=== PATIENT | male | born 1985 | race Caucasian/White ===

== ENCOUNTER → 2019-07-04 12:19 | Outpatient (CLI) | payer OTHER, SELFPAY ==
--- NOTE | ~2019-07-04 | CT_ITS ---
EXAMINATION: CT abdomen pelvis w con EXAM DATE: 07/04/2019 12:46 INDICATION: Low abdominal pain. History appendectomy. TECHNIQUE: Spiral CT of the abdomen and pelvis was performed following intravenous injection of 100 m L Omnipaque 350. Axial, coronal and sagittal images were reviewed. The dose-length product (DLP) fo r this examination was 1025.81 mGy-cm. The exposure was tailored according to patient size (auto mA exposure control), and iterative reconstruction (ASIR) was used as additional dose reduction techniqu e. Comparison is made to prior examination from 07/13/2016. FINDINGS: There is hepatic steatosis without suspicious focal lesion identified. Spleen, adrenal glan ds, pancreas are unremarkable. Gallbladder is unremarkable. No biliary obstruction. Portal and spl enic veins are patent. Kidneys enhance symmetrically. There is no hydronephrosis. The prostate is unremarkable. The bladder is unremarkable. There is no retroperitoneal or pelvic lymphadenopathy. Small right inguinal fat-containing hernia. Interval appendectomy. The stomach and small bowel are unremarkable. There is expected amount of c olonic stool. No free intraperitoneal gas. The heart is normal in size. There are no pericardial or pleural effusions. The lung bases are unremarkable. The bones are unremarkable. IMPRESSION: 1. No acute intra-abdominal findings. 2. Hepatic steatosis. Reviewed, dictated and finalized at location B.
== END ==
PROVIDERS: PCP Physician Assistant Medical; Visit Provider Physician Assistant Medical
DX: R10.30 Lower abdominal pain, unspecified (principal); K76.0 Fatty (change of) liver, not elsewhere classified
CPT/HCPCS: 74177; Q9967

== ENCOUNTER → 2019-11-18 12:39 | Outpatient (CLI) | payer OTHER, SELFPAY ==
--- NOTE | ~2019-11-18 | US_ITS ---
EXAMINATION: US right upper quadrant DATE: 11/18/2019 13:04 INDICATION: Right upper quadrant abdominal pain. Nausea. TECHNIQUE: Multiple grayscale and Doppler ultrasound images of the abdomen were obtained. COMPARISON: CT abdomen and pelvis 07/04/2019 FINDINGS: The visualized portions of the head, body, and tail of the pancreas are normal. There is di ffuse hepatic steatosis. There is normal flow in main portal vein. The gallbladder is normal in size. No gallstones or gallbladder wall thickening. There was no sonographic Flores sign. The common duct is normal and measures 4 mm. IMPRESSION: 1. Diffuse hepatic steatosis. Reviewed, dictated and finalized at location A.
== END ==
PROVIDERS: PCP Family Medicine; Visit Provider Family Medicine
DX: R10.11 Right upper quadrant pain (principal); R11.0 Nausea; K76.0 Fatty (change of) liver, not elsewhere classified
CPT/HCPCS: 76705

== ENCOUNTER → 2020-05-18 14:25 | Outpatient (CLI) | payer OTHER, SELFPAY ==
--- NOTE | ~2020-05-18 | XR_ITS ---
EXAMINATION: XR chest 2V DATE: 05/18/2020 15:04 INDICATION: Smoker. Anterior chest pain. TECHNIQUE: Frontal and lateral views of the chest were obtained. COMPARISON: CT abdomen 05/18/2020 FINDINGS: The chest demonstrates clear lungs without pneumonia, pleural effusion, or pneumothorax. Th e heart size is normal. IMPRESSION: 1. No acute cardiopulmonary disease. Reviewed, dictated and finalized at location A. E WORKER
--- NOTE | ~2020-05-18 | CT_ITS ---
EXAMINATION: CT abdomen w con DATE: 05/18/2020 14:52 INDICATION: Chronic pancreatitis. TECHNIQUE: Computed tomographic angiography (CTA) of the abdomen was performed with 100 mL Omnipaque 350with 100 mL Omnipaque-350 intravenous contrast. Automated exposure control and iterative reconstru ction technique were employed. The dose-length product was 673.16 mGy-cm. Maximum intensity projectio n 3D-reconstructions of the aorta and other arteries were constructed by the technologist on a [employer] workstation. COMPARISON: CT abdomen and pelvis 07/04/2019 FINDINGS: The visualized portions of the lung bases demonstrate mild dependent atelectasis. No pleura l effusion. The heart size is normal. No pericardial effusion. There is diffuse hepatic steatosis. Th e gallbladder, spleen, pancreas, adrenal glands, and kidneys are normal. The splenic artery and vein are normal. There are no dilated loops of bowel. There are no pathologically enlarged lymph nodes. Th ere is no free intraperitoneal fluid. Bones are unremarkable. IMPRESSION: 1. Diffuse hepatic steatosis. Reviewed, dictated and finalized at location A. REVENUE CYCLE
== END ==
DX: K86.1 Other chronic pancreatitis (principal); E78.1 Pure hyperglyceridemia; F17.210 Nicotine dependence, cigarettes, uncomplicated; K76.0 Fatty (change of) liver, not elsewhere classified
CPT/HCPCS: 71046; 74160; Q9967

== ENCOUNTER 2020-06-01 11:31 | Outpatient (CLI) | payer OTHER, SELFPAY ==
[2020-06-01 12:21] LABS: Bilirubin,Total 0.4 mg/dL (0.2-1.3)
[2020-06-01 12:22] LABS: INR 0.9; Prothrombin Time 13.2 Seconds (11.1-14.7)
[2020-06-01 12:41] LABS: Iron 74 ug/dL (49-181)
[2020-06-01 12:50] LABS: Percent Iron Saturation 18 % (20-50)
[2020-06-04 15:29] LABS: Ceruloplasmin 31 mg/dL (18-36)
[2020-06-05 13:59] LABS: GGT 36 U/L (3-90)
== END 2020-06-01 11:32 | disposition home or self-care (01) ==
DX: E78.1 Pure hyperglyceridemia (principal); K76.0 Fatty (change of) liver, not elsewhere classified
CPT/HCPCS: 36415; 82247; 82248; 82390; 82728; 82977; 83540; 83550; 85610

== ENCOUNTER 2020-08-16 07:30 | Outpatient (CLI) | payer OTHER, SELFPAY ==
[2020-08-16 08:14] LABS: Basophils Percent Auto 0.4 % (0.2-1.2); Eosinophils Absolute Auto 0.3 K/mm3 (0-0.3); Eosinophils Percent Auto 2.4 % (0-4.4); Hematocrit 42.9 % (42.0-52.0); Hemoglobin 14.1 g/dL (14.0-18.0); Immature Granulocyte Absolute 0.03 K/mm3 (0.00-0.031); Immature Granulocyte Percent A 0.3 % (0-0.5); Lymphocytes Absolute Auto 3.38 K/mm3 (0.9-3.2); Mean Corpuscular HGB Conc 32.9 g/dl (32-36); Mean Corpuscular Hemoglobin 28.5 pg (26-34); Mean Corpuscular Volume 86.7 fl (80-100); Mean Platelet Volume 9.5 fl (7.4-10.4); Monocytes Absolute Auto 0.7 K/mm3 (0.1-0.6); Monocytes Percent Auto 6.7 % (2.6-8.5); Neutrophils Absolute Auto 5.8 K/mm3 (1.3-6.7); Neutrophils Percent Auto 57.2 % (45.5-73.1); Platelet Count Result 286 k/mm3 (150-375); Red Blood Count 4.95 M/mm3 (4.6-6.20); Red Cell Distribution Width 12.7 % (11.5-14.5); White Blood Count 10.2 K/mm3 (4.5-10.0)
[2020-08-16 08:30] LABS: Alanine Aminotransferase 29 U/L (4-50); Albumin Level 4.4 g/dL (3.5-5.1); Alkaline Phosphatase 66 U/L (38-126); Anion Gap 8 mmol/L (8-16); Aspartate Amino Transferase 23 U/L (17-59); Bilirubin,Total < 0.1 mg/dL (0.2-1.3); Blood Urea Nitrogen 16 mg/dL (9-20); Calcium 9.2 mg/dL (8.4-10.2); Carbon Dioxide 23 mmol/L (22-30); Chloride 110 mmol/L (98-107); Estimated Glomerular Filt Rate > 60; Glucose 102 mg/dL (75-110); Potassium 4.6 mmol/L (3.4-5.0); Sodium 141 mmol/L (137-145)
== END 2020-08-16 07:31 | disposition home or self-care (01) ==
DX: E11.9 Type 2 diabetes mellitus without complications (principal)
CPT/HCPCS: 36415; 80053; 85025

== ENCOUNTER 2020-10-01 07:42 | Outpatient (CLI) | payer OTHER, SELFPAY ==
[2020-10-01 08:31] LABS: Alanine Aminotransferase 26 U/L (4-50); Albumin Level 4.5 g/dL (3.5-5.1); Alkaline Phosphatase 54 U/L (38-126); Anion Gap 11 mmol/L (8-16); Aspartate Amino Transferase 24 U/L (17-59); Bilirubin,Total 0.3 mg/dL (0.2-1.3); Blood Urea Nitrogen 17 mg/dL (9-20); Calcium 9.2 mg/dL (8.4-10.2); Carbon Dioxide 19 mmol/L (22-30); Chloride 112 mmol/L (98-107); Estimated Glomerular Filt Rate > 60; Glucose 110 mg/dL (75-110); Potassium 4.2 mmol/L (3.4-5.0); Sodium 142 mmol/L (137-145)
[2020-10-01 13:10] LABS: Hemoglobin A1C 5.6 % (<5.7)
== END 2020-10-01 07:43 | disposition home or self-care (01) ==
DX: E11.9 Type 2 diabetes mellitus without complications (principal)
CPT/HCPCS: 36415; 80053; 83036

== ENCOUNTER 2021-05-09 09:37 | Outpatient (CLI) | payer OTHER, SELFPAY ==
--- NOTE | ~2021-05-09 | MR_ITS ---
EXAMINATION: MR brain/brain stem wo/w con EXAM DATE: 05/09/2021 11:42 INDICATION: Headache associated with sexual activity, neck pain right frontal/occipital hernandes's w/ activ ity x1yr, no trauma, no ca . TECHNIQUE: Magnetic resonance imaging (MRI) of the brain/brain stem obtained without contrast. Sagit rafael T1, axial diffusion, gradient echo (T2*), T1, T2, FLAIR sequences obtained. Patient was then inj ected with 19 cc intravenous Multihance contrast. Axial and coronal postcontrast T1 weighted sequence s obtained. There is no prior study for comparison. FINDINGS: There are no areas of restricted diffusion to suggest acute infarction. There is no acute hemorrhage seen on the T2*, a hemosiderin sensitive sequence. No intraparenchymal brain mass. The ve ntricles are normal in size. There are no extra-axial collections. Flow voids are seen in the cereb ral arteries on the T2-weighted sequences consistent with their expected patency. The orbits are unr emarkable. Soft tissue is unremarkable. Mild to moderate left maxillary sinus, mild right maxillar y and bilateral ethmoid sinus mucoperiosteal thickening. IMPRESSION: 1. Unremarkable brain. 2. Mild to moderate mucoperiosteal thickening. Reviewed, dictated and finalized at location G. PROTECTION SPECIALIST
--- NOTE | ~2021-05-09 | MR_ITS ---
EXAMINATION: MRA neck wo/w con EXAM DATE: 05/09/2021 12:05 INDICATION: Headache associated with sexual activity, neck pain right frontal/occipital hernandes's w/ activ ity x1yr, no trauma, no ca . TECHNIQUE: Magnetic resonance angiography (MRA) of the neck was performed. Sequences included axial 2 D-time of flight T1-weighted FSPGR and coronal T1-weighted FSPGR without and with 19 mL Multihance in travenous contrast. There is no prior study for comparison. FINDINGS: There is 0% stenosis of the right carotid bulb relative to normal distal artery lumen diameter (NASCE T criteria). There is 0% stenosis of the left carotid bulb relative to normal distal artery lumen di ameter. IMPRESSION: Normal common, internal carotid arteries. Reviewed, dictated and finalized at location G. DING CONSTRUCTION INSPECTOR
--- NOTE | ~2021-05-09 | MR_ITS ---
EXAMINATION: MRA brain wo con EXAM DATE: 05/09/2021 11:41 INDICATION: Headache associated with sexual activity, neck pain right frontal/occipital hernandes' s w/ acti vity x1yr, no trauma, no ca TECHNIQUE: 3-D [id number] MRA of the intracranial arteries was performed without contrast. There is no prior study for comparison. FINDINGS: There is normal flow related signal seen within the vertebral, basilar and internal carotid arteries. There is no proximal stenosis. There are no aneurysms identified. Left vertebral artery is dominan t. Both A1 and P1 segments are patent. Flow in the cerebral arteries is symmetric. IMPRESSION: Normal MRA brain exam. Reviewed, dictated and finalized at location G. FIC LIEUTENANT IMPRESSION: Normal MRA brain exam.
[2021-05-09 10:18] LABS: Estimated Glomerular Filt Rate > 60
== END 2021-05-09 09:38 ==
PROVIDERS: PCP Nurse Practitioner; Visit Provider Nurse Practitioner
DX: M54.2 Cervicalgia (principal); R51.9 Headache, unspecified
CPT/HCPCS: 70544; 70549; 70553; A9577

== ENCOUNTER 2022-03-14 10:10 | Emergency (ER) | payer OTHER, SELFPAY ==
[2022-03-14] VITALS (8 sets, daily range): BP systolic 119–151; BP diastolic 80–99; PULSE 72–102; RESP 13–18; TEMP 36.4; O2SAT 95–100
--- NOTE | ~2022-03-14 | CT_ITS ---
EXAMINATION: CT abdomen pelvis w con DATE: 03/14/2022 14:44 INDICATION: Abdominal pain. Nausea. TECHNIQUE: Computed tomography (CT) of the abdomen and pelvis was performed with 100 mL Omnipaque 350 intravenous contrast. Automated exposure control and iterative reconstruction technique were employe d. The dose-length product was 627.37 mGy-cm. COMPARISON: CT abdomen 05/18/2020 FINDINGS: The visualized portions of the lung bases and is a mild atelectasis. No pleural effusion. T he heart size is normal. No pericardial effusion. There is diffuse hepatic steatosis. The gallbladder , spleen, pancreas, adrenal glands, and kidneys are normal. There is a right inguinal hernia containi ng fat. There are no dilated loops of bowel. The appendix is not visualized. There are no pathologica lly enlarged lymph nodes. There is no free intraperitoneal fluid. The bones are unremarkable. IMPRESSION: 1. Diffuse hepatic steatosis. 2. Right inguinal hernia containing fat. Reviewed, dictated and finalized at location A. RITY INSTALLER
--- NOTE | 2022-03-14 10:29 | PC.NURSE ---
Pt approached intake desk and states I feel like I am going to pass out. This RN offered wheelchair to pt, brought it out to waiting room. Pt sitting in chair and puts hand up, states No, I am not sitting in that, I am fine. Pt declined w/c at this time.
[2022-03-14 10:44] LABS: Basophils Percent Auto 0.3 % (0.2-1.2); Eosinophils Percent Auto 0.1 % (0-4.4); Hematocrit 49.7 % (42.0-52.0); Hemoglobin 16.4 g/dL (14.0-18.0); Immature Granulocyte Percent A 0.7 % (0-0.5); Lymphocytes Absolute Auto 1.52 K/mm3 (0.9-3.2); Mean Corpuscular Hemoglobin 28.7 pg (26-34); Monocytes Absolute Auto 0.5 K/mm3 (0.1-0.6); Monocytes Percent Auto 3.3 % (2.6-8.5); Neutrophils Absolute Auto 11.7 K/mm3 (1.3-6.7); Neutrophils Percent Auto 84.6 % (45.5-73.1); Platelet Count Result 400 k/mm3 (150-375); Red Blood Count 5.71 M/mm3 (4.6-6.20); Red Cell Distribution Width 13.3 % (11.5-14.5); White Blood Count 13.8 K/mm3 (4.5-10.0)
[2022-03-14 10:59] LABS: Alanine Aminotransferase 49 U/L (6-50); Albumin Level 4.9 g/dL (3.5-5.1); Alkaline Phosphatase 45 U/L (38-126); Anion Gap 16 mmol/L (8-16); Aspartate Amino Transferase 27 U/L (17-59); Bilirubin,Total 0.3 mg/dL (0.2-1.3); Blood Urea Nitrogen 16 mg/dL (9-20); Calcium 9.6 mg/dL (8.4-10.2); Carbon Dioxide 23 mmol/L (22-30); Chloride 104 mmol/L (98-107); Estimated CRCL calculation 100 ml/min; Estimated Glomerular Filt Rate > 60; Glucose 141 mg/dL (65-110); Lipase 52 U/L (23-300); Potassium 4.7 mmol/L (3.4-5.0); Sodium 143 mmol/L (137-145)
[2022-03-14 12:23] LABS: Appearance Urine Clear (Clear); Bilirubin Urine 1+ (Negative); Blood Urine Negative (Negative); Color Urine Yellow (Yellow); Glucose Urine UA Negative (Negative); Ketones Urine Negative (Negative); Leukocyte Esterase Ur Negative LEU/UL (Negative); Nitrate Urine Negative (Negative); Protein Urine Negative (Negative); Specific Grav Ur >= 1.030 (1.001-1.035); Urobilinogen Urine 0.2 mg/dL (<2.0); pH Urine 5.5 (5.0-9.0)
[2022-03-14 12:26] LABS: Mucus Urine Rare /lpf; RBC Urine 0-2 /hpf (0-2); Squamous Epithelial Cell Urine Rare /hpf (Few); WBC Urine 0-3 /hpf
[2022-03-14 12:28] LABS: Add Urine Microscopic? YES
[2022-03-14] MEDS: ONDANSETRON INJ 4 MG/2 ML VIAL (14:22)
[2022-03-14] MEDS: MORPHINE SULFATE (*CRX) 4 MG/ML INJ (14:22)
[2022-03-14] MEDS: SODIUM CHLORIDE 0.9% IV 1,000 ML 999 ML (14:22)
[2022-03-14 15:21] LABS: Glucose Point of Care 96 mg/dl (65-105)
--- NOTE | 2022-03-14 15:38 | ED.GENADULT ---
HPI - General Adult General Chief complaint: Abdominal Pain Stated complaint: abd pain Time Seen by Provider: 03/14/22 12:14 Related Data Allergies Allergy/AdvReac Type Severity Reaction Status Date / Time fluoxetine Allergy Unknown Unknown Verified 04/13/20 13:39 lorazepam Allergy Unknown Unknown Verified 04/13/20 13:39 promethazine Allergy Unknown Unknown Verified 04/13/20 13:39 metronidazole Allergy Anaphylaxis Verified 03/14/22 12:06 BEESTINGS Allergy Mild Unknown Uncoded 09/01/19 09:41 PMFSH Family History Family History Grandparent Diabetes mellitus Hypertension Family history of coronary artery disease Family history of mental disorder Family history of cardiovascular disease Mother Depression Hypertension Family history of malignant neoplasm of breast Father Hypertension Social History Social History Smoking status: Current every day smoker Smoking end date: 04/23/15 Alcohol intake: current Course Vital Signs Vital signs: Vital Signs Temperature 97.5 F L 03/14/22 10:10 Pulse Rate 102 H 03/14/22 10:10 Respiratory Rate 18 03/14/22 10:10 Blood Pressure 151/90 H 03/14/22 10:10 Pulse Oximetry 100 03/14/22 10:10 Oxygen Delivery Room Air 03/14/22 10:10 Temperature 97.5 F L 03/14/22 10:10 Pulse Rate 102 H 03/14/22 10:10 Respiratory Rate 18 03/14/22 10:10 Blood Pressure 151/90 H 03/14/22 10:10 Pulse Oximetry 100 03/14/22 10:10 Oxygen Delivery Room Air 03/14/22 10:10 Medical Decision Making [facility] Narrative Medical decision making narrative: MPRESSION: 1. Diffuse hepatic steatosis. 2. Right inguinal hernia containing fat. Labs are grossly unremarkable and only abnormal value is mild leukocytosis with a left shift. CT abdomen and pelvis demonstrates diffuse fatty liver and right inguinal hernia. This is not consistent with patient's symptomatology. He is much more comfortable after morphine. Vital Signs Vital Signs: Vital Signs Temperature 97.5 F L 03/14/22 10:10 Pulse Rate 102 H 03/14/22 10:10 Respiratory Rate 18 03/14/22 10:10 Blood Pressure 151/90 H 03/14/22 10:10 Pulse Oximetry 100 03/14/22 10:10 Oxygen Delivery Room Air 03/14/22 10:10 Temperature 97.5 F L 03/14/22 10:10 Pulse Rate 102 H 03/14/22 10:10 Respiratory Rate 18 03/14/22 10:10 Blood Pressure 151/90 H 03/14/22 10:10 Pulse Oximetry 100 03/14/22 10:10 Oxygen Delivery Room Air 03/14/22 10:10 Lab Data Result diagrams: 03/14/22 10:32 03/14/22 10:32 Labs: Lab Results 03/14/22 03/14/22 03/14/22 Range/Units 10:32 10:32 12:10 WBC 13.8 H (4.5-10.0) K/mm3 RBC 5.71 (4.6-6.20) M/mm3 Hgb 16.4 (14.0-18.0) g/dL Hct 49.7 (42.0-52.0) % MCV 87.0 (80-100) fl MCH 28.7 (26-34) pg MCHC 33.0 (32-36) g/dl RDW 13.3 (11.5-14.5) % Plt Count 400 H (150-375) k/mm3 MPV 9.0 (7.4-10.4) fl Immature Gran % (Auto) 0.7 H (0-0.5) % Neut % (Auto) 84.6 H (45.5-73.1) % Lymph % (Auto) 11.0 L (18.3-44.2) % [place] % (Auto) 3.3 (2.6-8.5) % Eos % (Auto) 0.1 (0-4.4) % Baso % (Auto) 0.3 (0.2-1.2) % Lymph # (Auto) 1.52 (0.9-3.2) K/mm3 [place] # (Auto) 0.5 (0.1-0.6) K/mm3 Eos # (Auto) 0.0 (0-0.3) K/mm3 Baso # (Auto) 0.0 (0.0-0.1) K/mm3 Abs Immat Gran (auto) 0.10 H (0.00-0.031) K/mm3 Absolute Neuts (auto) 11.7 H (1.3-6.7) K/mm3 Absolute Nucleated RBC 0.0 (0.0-0.012) K/mm3 Nucleated RBC % 0.0 (0.0-0.2) % Sodium 143 (137-145) mmol/L Potassium 4.7 (3.4-5.0) mmol/L Chloride 104 (98-107) mmol/L Carbon Dioxide 23 (22-30) mmol/L Anion Gap 16 (8-16) mmol/L BUN 16 (9-20) mg/dL Creatinine 1.00 (0.7-1.3) mg/dL Estim Creat Clear Calc 100 ml/min Estimated GFR > 60 (59 - ) Glucose 141 H (
[2022-03-14] MEDS: diphenhydrAMINE HCl INJ 50 MG/ML VIAL 25 MG IV PUSH (15:51)
== END 2022-03-14 18:58 | disposition home or self-care (01) ==
PROVIDERS: Emergency Provider Emergency Medicine; PCP Nurse Practitioner
DX: R10.9 Unspecified abdominal pain (principal); Z87.891 Personal history of nicotine dependence; K76.0 Fatty (change of) liver, not elsewhere classified; K40.90 Unilateral inguinal hernia, without obstruction or gangrene, not specified as recurrent
CPT/HCPCS: 36415; 74177; 80053; 81001; 82948; 83690; 85025; 96361; 96374; 96375; 99284; J1100; J1200; J2270; J2405; J7030; Q9967

== ENCOUNTER 2024-03-17 11:55 | Outpatient (CLI) | payer OTHER, SELFPAY ==
[2024-03-17 13:37] LABS: Hematocrit 43.7 % (42.0-52.0); Hemoglobin 14.6 g/dL (14.0-18.0); Mean Corpuscular HGB Conc 33.4 g/dl (32-36); Mean Corpuscular Hemoglobin 29.2 pg (26-34); Mean Corpuscular Volume 87.4 fl (80-100); Mean Platelet Volume 9.4 fl (7.4-10.4); Platelet Count Result 242 k/mm3 (150-375); Red Cell Distribution Width 12.7 % (11.5-14.5); White Blood Count 7.8 K/mm3 (4.5-10.0)
[2024-03-17 13:52] LABS: Alanine Aminotransferase 27 U/L (6-50); Albumin Level 4.6 g/dL (3.5-5.1); Alkaline Phosphatase 57 U/L (38-126); Anion Gap 8 mmol/L (4-12); Aspartate Amino Transferase 24 U/L (17-59); Bilirubin,Total 0.4 mg/dL (0.2-1.3); Blood Urea Nitrogen 12 mg/dL (9-20); CRP < 0.5 mg/dL (<1.0); Carbon Dioxide 25 mmol/L (22-30); Chloride 108 mmol/L (98-107); Estimated Glomerular Filt Rate > 60; Glucose 99 mg/dL (65-110); Potassium 4.1 mmol/L (3.4-5.0); Sodium 141 mmol/L (137-145)
[2024-03-17 14:07] LABS: Erythrocyte Sedimentation Rate 15 mm/hr (0-20)
[2024-03-17 14:26] LABS: Iron 67 ug/dL (49-181)
[2024-03-17 14:35] LABS: Percent Iron Saturation 18 % (20-50)
[2024-03-17 14:56] LABS: Thyroid Stimulating Hormone Reflex 0.792 uIU/mL (0.465-4.68)
[2024-03-19 14:24] LABS: Beef IgE (F27) <0.10 kU/L; Pork (F26) IgE <0.10 kU/L; Pork Class 0
[2024-03-19 14:28] LABS: Lamb (F88) IgE <0.10 kU/L; Lamb Class 0
== END 2024-03-17 11:56 | disposition home or self-care (01) ==
PROVIDERS: PCP Nurse Practitioner; Visit Provider Nurse Practitioner
DX: R10.13 Epigastric pain (principal); K58.0 Irritable bowel syndrome with diarrhea; R14.2 Eructation; K76.0 Fatty (change of) liver, not elsewhere classified; E61.1 Iron deficiency; Z86.19 Personal history of other infectious and parasitic diseases
CPT/HCPCS: 36415; 80053; 82728; 83540; 83550; 84443; 85027; 85652; 86008; 86140

== ENCOUNTER 2024-03-19 11:22 | Outpatient (CLI) | payer OTHER, SELFPAY ==
[2024-03-24 12:33] LABS: Trichrome Ova and Parasites STATUS: FINAL
[2024-03-25 14:08] LABS: Pancreatic Elastase, Stool >800 mcg/g (>200)
[2024-03-26 21:18] LABS: Calprotectin, Stool 43 mcg/g
== END 2024-03-19 11:23 | disposition home or self-care (01) ==
LOC: ANHLAB 11:23
PROVIDERS: PCP Nurse Practitioner; Visit Provider Nurse Practitioner
DX: R10.13 Epigastric pain (principal); E61.1 Iron deficiency; K58.0 Irritable bowel syndrome with diarrhea; K76.0 Fatty (change of) liver, not elsewhere classified; R14.2 Eructation; Z86.19 Personal history of other infectious and parasitic diseases
CPT/HCPCS: 82653; 83993; 87045; 87177; 87209; 87269; 87427; 87449